=== PATIENT | female | born 1970 | race Caucasian/White ===

== ENCOUNTER → 2022-09-24 | Day surgery (SDC) | payer MEDICAID ==
[~2022-09-24] MED LIST: Ketamine 200 MG/20 ML MDV ONE; Lactated Ringers 1,000 ML IV SCH; Propofol 200 MG/20 ML SDV ONE; fentaNYL 50 MCG/ML SDV ONE
== END ==
LOC: CC.SDS 06:48
PROVIDERS: ATTEND Family Medicine
DX: K63.5 Polyp of colon (principal); K52.89 Other specified noninfective gastroenteritis and colitis; Z12.11 Encounter for screening for malignant neoplasm of colon; F41.9 Anxiety disorder, unspecified; J45.909 Unspecified asthma, uncomplicated; R00.0 Tachycardia, unspecified; E11.9 Type 2 diabetes mellitus without complications; Z79.84 Long term (current) use of oral hypoglycemic drugs; Z79.899 Other long term (current) drug therapy; Z87.59 Personal history of other complications of pregnancy, childbirth and the puerperium
CPT/HCPCS: 00812; 36415; 84703; J2704; J3010; J3490; J7120